=== PATIENT | female | born 2000 ===

== ENCOUNTER 2019-06-15 20:56 | Outpatient (CLI) | payer OTHER ==
[2019-06-15 21:09] VITALS: BP 121/71
--- NOTE | 2019-06-15 23:26 | Ultrasound Report ---
OB ultrasound with biophysical profile. HISTORY: Evaluate intrauterine . FINDINGS: Biophysical profile is 8 of 8. Limited OB ultrasound demonstrates a single viable intrauterine in the cephalic position wi th heart tones of 145 bpm. No abruption is identified. Amniotic fluid index is 14. IMPRESSION: 1. Biophysical profile 8 of 8. 2. Negative for abruption. Signer Name: Lev Jones MD Signed: 06/15/2019 11:22 PM Workstation Name: [id number]
--- NOTE | 2019-06-15 23:56 | Progress Note ---
Assessment and Plan A: at 39 weeks, 4 days gestation. Normal BPP and SENTHIL. Negative SSE, negative pooling, and negative fern times 2. Vaginal discharge, possible BV. Not in active labor. P: Rx Flagyl 500 mg, #14, 1 po BID called to [facility] pharmacy on [address] Discussed use of medication with patient. Discussed with patient signs of labor, warning signs of late and daily movement counting. Advised patient to avoid sexual activity, intercourse. Advised patient to follow up at [facility] tomorrow for cervical cultures since she has a white vaginal discharge. Advised patient to return promptly to the hospital if any problems. Patient voiced understanding of all instructions and states she has no questi ons. Subjective - Subjective Date of service: 06/15/19 Principal diagnosis: at 39 4/7 weeks Interval history: 19 year old female presents at 39 2/7 weeks to rule out leaking of water. She states that at 8:00 PM this evening she felt a small amount of some sort of vaginal discharge. She states she never saw the color of the discharge, she only felt it. No gushes, no trickle, no need to change clothing or pantyliner, and the discharge did not continue to leak out. She denies vaginal bleeding. She reports active movement. She denies labor contractions. Patient states she has recently transferred her care to [facility] from another practice and has made one visit to [facility] so far. She states she has another visit scheduled for this week. She denies any complications during this . Patient reports: movement normal, no vaginal bleeding, no contractions Objective - Vital Signs Vital Signs: Vital Signs - 12hr 06/15/19 21:06 Pulse Rate 88 Blood Pressure 121/71 - Exam Narrative Exam: Sterile speculum exam performed times 2; negative pooling times 2, negative fern test times 2. White vaginal discharge; possible BV. Cervix thick by visual inspection. BPP 8/8. SENTHIL 14 cm. Patient was on a pad the entire time she was in triage and the pad was totally dry. Abdomen: Present: normal appearance, soft. Absent: distention, tenderness, guarding, rigidity Uterus: Present: normal, fundal height above umbilicus. Absent: tenderness FHR: category 1 Uterine Contraction Monitor Mode: External Cervical Dilatation: 1 (By visual inspection) Uterine Contraction Pattern: Irregular Uterine Contraction Intensity: Mild Extremities: normal
== END 2019-06-15 23:49 | disposition home or self-care (01) ==
LOC: TRG 20:56
PROVIDERS: ATTEND Obstetrics & Gynecology
DX: O47.1 False labor at or after 37 completed weeks of gestation (principal); Z3A.39 39 weeks gestation of pregnancy
CPT/HCPCS: 59025; 76815; 76819